=== PATIENT | female | born 2000 | race Two or more races ===

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

== ENCOUNTER 2018-04-24 16:05 | Observation (INO) | payer MEDICAID | END 2018-04-24 17:55 | disposition home or self-care (01) | DRG 566 | LOC: LDRP 16:05 | PROVIDERS: ADMIT Obstetrics & Gynecology; ATTEND Obstetrics & Gynecology | DX: O36.8190 Decreased fetal movements, unspecified trimester, not applicable or unspecified (principal); Z3A.00 Weeks of gestation of pregnancy not specified | CPT/HCPCS: 59025; 76815; 81002; G0378 ==

== ENCOUNTER 2018-07-24 11:20 | Inpatient (IN) | payer MEDICAID ==
[~2018-07-24] VITALS: Ht 165.1 cm; Wt 90.7 kg
[2018-07-24] MEDS ORDERED: LACT. RINGERS/OXYTOCIN 20UNITS 1,000 ML IV SCH (12:37)
[2018-07-24] MEDS ORDERED: NALBUPHINE HCL 10 MG/1ml INJECTION IV PRN (12:45)
[2018-07-24] MEDS ORDERED: LIDOCAINE 2%HCL (LOCAL ANESTH.) INJ 20ML MDV ID ONE (12:45)
[2018-07-24] MEDS ORDERED: METHYLERGONOVINE MALEATE 0.2 MG/ML AMP IM PRN (12:45)
[2018-07-24] MEDS: LACTATED RINGER'S 1,000 ML IV SCH (13:25)
[2018-07-24 13:28] LABS: Basophils # (auto) 0 uL; Basophils % (auto) 0.3 % (0.0-2.0); Eosinophils # (auto) 0 uL; Eosinophils % (auto) 0.3 % (0.0-7.0); Hematocrit 37.2 % (36.0-46.0); Hemoglobin 12.7 g/dL (12.2-16.2); Lymphocytes # (auto) 1.2 uL; Lymphocytes % (auto) 18.5 % (10.0-50.0); Mean Corpuscular Hemoglobin 31.7 pg (28.0-32.0); Mean Corpuscular Volume 93.2 fL (80.0-100.0); Monocytes # (auto) 0.4 uL; Monocytes % (auto) 6.1 % (0.0-12.0); Neutrophils # (auto) 4.7 uL; Neutrophils % (auto) 74.8 % (37.0-80.0); Nucleated Red Blood Cells % 0.1 %; Platelet Count (auto) 242 10^3/uL (140-450); Red Blood Cells 3.99 10^6/uL (4.0-5.20); Red Cell Distribution Width 14.2 % (11.8-14.3); White Blood Cell 6.2 10^3/uL (4.4-10.8)
[2018-07-24 13:44] LABS: Albumin 2.7 g/dL (3.4-5.0); BUN/Creatinine Ratio 9.4; Calcium 8.7 mg/dL (8.5-10.1); Potassium 4.2 mmol/L (3.5-5.1)
[2018-07-24 13:46] LABS: Bilirubin, Total 0.3 mg/dL (0.2-1.0); Total Protein 6.5 g/dL (6.4-8.2)
[2018-07-24 13:50] LABS: INR 0.93 (0.9-1.15); Partial Thromboplastin Time 27.2 sec (23.78-33.04)
[2018-07-24 13:58] LABS: Urine Bacteria MOD /hpf (None Seen); Urine Blood 1+ /uL (Negative); Urine Mucus FEW (None Seen); Urine WBC 6 /hpf (0 - 5)
[2018-07-24] MEDS ORDERED: PREN-96 PO (14:41)
[2018-07-24] MEDS: ceFAZolin 1GM/50ML 50 ML IV SCH (22:40)
[2018-07-25] MEDS ORDERED: PROMETHAZINE HCL 25 MG/ML 1ML IM ONE (03:15)
[2018-07-25] MEDS ORDERED: LACT. RINGERS/OXYTOCIN 20UNITS 1,000 ML IV SCH (03:20)
[2018-07-25] MEDS: LACTATED RINGER'S 1,000 ML IV SCH ×2 (03:30→04:37)
[2018-07-25] MEDS ORDERED: TERBUTALINE SULFATE 1 MG/ML 1ML VIAL SC ONE (03:30)
[2018-07-25 04:08] LABS: RPR Non Reactive (Non Reactive)
[2018-07-25] MEDS ORDERED: THROAT LOZENGES(CEPASTAT) MT PRN (07:00)
[2018-07-25] MEDS: fentaNYL CITRATE 100 MCG/2 ML VL IV PRN ×3 (08:26→10:52)
[2018-07-25] MEDS ORDERED: CARBOPROST TROMETHAMINE 250 MCG/1ML VIAL IM ONE ×2 (12:04→13:03)
[2018-07-25] MEDS ORDERED: ONDANSETRON HCL 4 MG/2 ML VIAL ONE (12:10)
[2018-07-25] MEDS ORDERED: DIPHENOXYLATE W/ATROPINE 2.5 MG TAB PO ONE (12:15)
[2018-07-25] MEDS ORDERED: CARBOPROST TROMETHAMINE 250 MCG/1ML VIAL IM PRN (12:15)
[2018-07-25] MEDS ORDERED: ONDANSETRON HCL 4 MG/2 ML VIAL IV PRN (12:15)
[2018-07-25] MEDS ORDERED: LACT. RINGERS/OXYTOCIN 20UNITS 500 ML IV ONE (12:44)
[2018-07-25] MEDS ORDERED: ACETAMINOPHEN 325 MG TAB PO PRN (12:45)
--- NOTE | 2018-07-25 13:45 | NUR ---
Ambulation: Patient OOB with standby assistance by Minna URIAS. Patient ambulated to bathroom with steady gait. Patient able to void without difficulty 400 ml's. [facility] teaching provided with returned demonstration by patient. Clean gown provided and bed linen changed. Patient ambulated back to bed with steady gait and no distress noted.
[2018-07-25] MEDS: ceFAZolin 1GM/50ML 50 ML IV SCH (14:30)
[2018-07-25] MEDS: IBUPROFEN 600 MG TAB PO PRN ×2 (15:00→19:20)
[2018-07-25] MEDS: DERMOPLAST 60ML BOTTLE TOP PRN (17:49)
[2018-07-25] MEDS: PHISODERM TOP SOLN 240ML BTL TOP PRN (17:49)
[2018-07-25] MEDS: WITCH HAZEL-GLYCERIN PAD TOP PRN (17:49)
[2018-07-25 18:50] VITALS: BP 109/59
[2018-07-25 22:57] VITALS: BP 119/55
[2018-07-26 02:59] VITALS: BP 109/55
[2018-07-26] MEDS: IBUPROFEN 600 MG TAB PO PRN (03:01)
[2018-07-26 07:14] VITALS: BP 105/52
--- NOTE | 2018-07-26 08:35 | NUR ---
Discharge: Discharge instructions given as ordered. Pt encouraged to follow up with [facility] as instructed. All questions and concerns addressed. Patient verbalized understanding. Medication reconciliation completed and copy to be given to patient. Patient encouraged to prepare to depart unit.
[2018-07-26 11:15] VITALS: BP 128/58
--- NOTE | 2018-07-26 11:46 | NUR ---
IV removal IV DC'd with sterile technique, catheter fully intact. Pressure dressing applied to site. Patient tolerated procedure well. Discharged with aftercare instructions
[2018-07-26] MEDS: PHISODERM TOP SOLN 240ML BTL TOP PRN (14:19)
[2018-07-26] MEDS: DERMOPLAST 60ML BOTTLE TOP PRN (14:19)
[2018-07-26] MEDS: WITCH HAZEL-GLYCERIN PAD TOP PRN (14:19)
--- NOTE | 2018-07-26 14:25 | NUR ---
Discharge: Patient taken to vehicle via ambulation refusing wheelchair with all personal belongings, accompanied by staff and family member. No distress noted at time of departure, no adverse changes in status since initial assessment.
== END 2018-07-26 14:25 | disposition home or self-care (01) | DRG 560 ==
LOC: LDRP 11:20
PROVIDERS: ADMIT Obstetrics & Gynecology; ATTEND Obstetrics & Gynecology
PROC: 10E0XZZ Delivery of Products of Conception, External Approach (ICD-10-PCS; principal; 2018-07-25)
PROC: 0W8NXZZ Division of Female Perineum, External Approach (ICD-10-PCS; 2018-07-25)
PROC: 10H07YZ Insertion of Other Device into Products of Conception, Via Natural or Artificial Opening (ICD-10-PCS; 2018-07-25)
PROC: 0KQM0ZZ Repair Perineum Muscle, Open Approach (ICD-10-PCS; 2018-07-25)
DX: O48.0 Post-term pregnancy (principal); O70.1 Second degree perineal laceration during delivery; Z37.0 Single live birth; Z3A.40 40 weeks gestation of pregnancy; Z91.010 Allergy to peanuts
CPT/HCPCS: 36415; 59025; 59409; 80053; 81001; 81002; 85025; 85610; 85730; 86592; 86850; 86900; 86901; 94760; 94762; 96361; 96365; 96366; 96372; 96374; G0378; J0690; J2405; J2590